=== PATIENT | female | born 1940 | race Caucasian/White ===

== ENCOUNTER 2021-11-02 19:45 | Inpatient (IN) ==
[2021-11-02 20:33] LABS: ABS Lymphocytes 0.3 10^3/ul (1.0-4.8); ABS Monocytes 0.2 10^3/ul (0-0.8); ABS Neutrophils 3.8 10^3/ul (1.5-7.7); Hematocrit 32 % (35-47); Hemoglobin 10.9 g/dL (12.0-16.0); Lymphocyte % 7.5 %; Mean Corpuscular HGB Conc 35 g/dL (31-36); Mean Corpuscular Hemoglobin 31 pg (27-31); Mean Corpuscular Volume 91 fL (80-97); Mean Platelet Volume 9.9 fL (7.4-10.4); Platelet Count 152 10^3/uL (150-450); Red Blood Count 3.49 10^6 /uL (3.70-4.87); Red Cell Distribution Width 13 % (10-15); White Blood Count 4.3 10^3/uL (3.5-10.8)
[2021-11-02 21:04] LABS: LDH 266 U/L (140-271)
[2021-11-02 21:24] LABS: Ferritin 420.1 ng/mL (11-307)
[2021-11-02 21:36] LABS: CRP High Sensitivity > 80.00 mg/L (<2.00)
[2021-11-02 21:42] LABS: ALT 12 U/L (7-52); AST 23 U/L (13-39); Albumin 3.1 g/dL (3.2-5.2); Albumin/Globulin Ratio 0.8 (1-3); Alkaline Phosphatase 50 U/L (35-149); Anion Gap 11 mmol/L (2-11); Blood Urea Nitrogen 70 mg/dL (6-24); CO2 Carbon Dioxide 23 mmol/L (22-32); Calcium 8.7 mg/dL (8.6-10.3); Chloride 94 mmol/L (101-111); Globulin 3.8 g/dL (2-4); Glucose 218 mg/dL (70-100); Potassium 3.7 mmol/L (3.5-5.0); Sodium 128 mmol/L (135-145); Total Protein 6.9 g/dL (6.4-8.9); eGFR CKD-EPI 13.1 (>60)
[2021-11-02 21:46] LABS: Troponin I 0.06 ng/mL (<0.03)
[2021-11-02] MEDS ORDERED: Albuterol HFA INHALER 8 gm MDI INH PRN (22:42)
[2021-11-03] MEDS: DOXYcycline 100 MG in NS 0.9% 250 ml 250 ML IVPB SCH ×3 (00:32→21:17)
[2021-11-03 01:45] LABS: Urine Appearance Clear; Urine Color Yellow
[2021-11-03 01:46] LABS: Urine Bilirubin Negative (Negative); Urine Blood Negative (Negative); Urine Glucose Negative (Negative); Urine Ketones Negative (Negative); Urine Nitrite Negative (Negative); Urine Protein 2+(100 mg/dL) (Negative); Urine Urobilinogen Negative (Negative)
[2021-11-03 01:47] LABS: Troponin I 0.05 ng/mL (<0.03)
[2021-11-03 01:55] LABS: Urine Bacteria 1+ (Absent); Urine Red Blood Cell Absent (Absent); Urine Squamous Epithelial Cell Present (Absent); Urine White Blood Cell 1+(6-10/hpf) (Absent)
[2021-11-03 04:21] LABS: Urine Creatinine Concentration 61.14 mg/dL
[2021-11-03 06:04] LABS: ABS Lymphocytes 0.4 10^3/ul (1.0-4.8); ABS Monocytes 0.2 10^3/ul (0-0.8); ABS Neutrophils 2.5 10^3/ul (1.5-7.7); Hematocrit 31 % (35-47); Hemoglobin 10.6 g/dL (12.0-16.0); Lymphocyte % 12.5 %; Mean Corpuscular HGB Conc 35 g/dL (31-36); Mean Corpuscular Hemoglobin 31 pg (27-31); Mean Corpuscular Volume 90 fL (80-97); Mean Platelet Volume 9.8 fL (7.4-10.4); Nucleated Red Blood Cells % 0.1; Platelet Count 147 10^3/uL (150-450); Red Blood Count 3.39 10^6 /uL (3.70-4.87); Red Cell Distribution Width 13 % (10-15); White Blood Count 3.1 10^3/uL (3.5-10.8)
[2021-11-03 06:12] LABS: INR 1.47 (0.86-1.15)
[2021-11-03 08:20] LABS: Troponin I 0.04 ng/mL (<0.03)
[2021-11-03] MEDS ORDERED: CMCS: Nebivolol 2.5 mg TAB (NF) PO SCH (09:00)
[2021-11-03] MEDS ORDERED: Nebivolol 5 mg TAB (NF) PO SCH (09:46)
[2021-11-03] MEDS: CMCS: Nebivolol 2.5 mg TAB (NF) PO SCH (10:11)
[2021-11-03 12:23] LABS: Calcium 9.1 mg/dL (8.6-10.3); Potassium 3.6 mmol/L (3.5-5.0); eGFR CKD-EPI 16.2 (>60)
[2021-11-03 12:33] LABS: C Reactive Protein 114.03 mg/L (<8.01)
[2021-11-03] MEDS ORDERED: Magnesium Hydroxide LIQ 30 ML UDC PO PRN (12:38)
[2021-11-03] MEDS ORDERED: Senna TAB 8.6 mg TAB PO PRN (12:38)
[2021-11-03] MEDS ORDERED: Furosemide 40 mg/4 ml IV VIAL IV ONE (15:17)
[2021-11-03] MEDS: Polyethylene Glycol 3350 17 GM PACKET PO PRN (21:27)
[2021-11-04] MEDS ORDERED: Furosemide 20 mg/2 ml IV VIAL IV ONE (03:36)
[2021-11-04 05:07] LABS: C Reactive Protein 72.07 mg/L (<8.01)
[2021-11-04 05:10] LABS: Hematocrit 31 % (35-47); Hemoglobin 10.6 g/dL (12.0-16.0); Mean Corpuscular HGB Conc 34 g/dL (31-36); Mean Corpuscular Hemoglobin 31 pg (27-31); Mean Corpuscular Volume 91 fL (80-97); Mean Platelet Volume 10.5 fL (7.4-10.4); Platelet Count 165 10^3/uL (150-450); Red Blood Count 3.43 10^6 /uL (3.70-4.87); Red Cell Distribution Width 13 % (10-15); White Blood Count 6.8 10^3/uL (3.5-10.8)
[2021-11-04 06:05] LABS: Albumin 2.9 g/dL (3.2-5.2); Potassium 3.6 mmol/L (3.5-5.0); Total Bilirubin 0.3 mg/dL (0.2-1.0)
[2021-11-04 06:11] LABS: Albumin/Globulin Ratio 0.8 (1-3); Globulin 3.7 g/dL (2-4); Total Protein 6.6 g/dL (6.4-8.9); eGFR CKD-EPI 19.7 (>60)
[2021-11-04 08:23] LABS: PCO2 Arterial 29 mmHg (35-45); PO2 Arterial 62 mmHg (80-100)
[2021-11-04] MEDS: DOXYcycline 100 MG in NS 0.9% 250 ml 250 ML IVPB SCH ×2 (09:27→22:06)
[2021-11-04] MEDS: Dexamethasone IV 4 MG/ML VIAL 1 ml VIAL IV SLOW PU SCH (09:28)
[2021-11-04] MEDS: CMCS: Nebivolol 2.5 mg TAB (NF) PO SCH (10:43)
[2021-11-05 04:24] LABS: ABS Lymphocytes 0.6 10^3/ul (1.0-4.8); ABS Monocytes 0.6 10^3/ul (0-0.8); ABS Neutrophils 6.6 10^3/ul (1.5-7.7); Hematocrit 34 % (35-47); Hemoglobin 11.4 g/dL (12.0-16.0); Lymphocyte % 7.2 %; Mean Corpuscular HGB Conc 33 g/dL (31-36); Mean Corpuscular Hemoglobin 31 pg (27-31); Mean Corpuscular Volume 92 fL (80-97); Mean Platelet Volume 9.9 fL (7.4-10.4); Platelet Count 192 10^3/uL (150-450); Red Blood Count 3.71 10^6 /uL (3.70-4.87); Red Cell Distribution Width 14 % (10-15); White Blood Count 7.7 10^3/uL (3.5-10.8)
[2021-11-05 04:39] LABS: Calcium 9.2 mg/dL (8.6-10.3); Magnesium 1.6 mg/dL (1.9-2.7); Phosphorus 3.3 mg/dL (2.5-5.0); Potassium 3.5 mmol/L (3.5-5.0); eGFR CKD-EPI 20.3 (>60)
[2021-11-05] MEDS ORDERED: Potassium Chlor 20 meq TAB.ER PO ONE (05:06)
[2021-11-05] MEDS ORDERED: Magnesium Sulf 4 GM/100 ML IV 4,000 MG/100 ML BAG IVPB ONE (05:06)
[2021-11-05] MEDS ORDERED: Furosemide 40 mg/4 ml IV VIAL IV SLOW PU ONE (06:15)
[2021-11-05] MEDS: CMCS: Nebivolol 2.5 mg TAB (NF) PO SCH (09:01)
[2021-11-05] MEDS: SELENIUM 200 MCG PO SCH (09:02)
[2021-11-05] MEDS: Dexamethasone IV 4 MG/ML VIAL 1 ml VIAL IV SLOW PU SCH (09:02)
[2021-11-05] MEDS: Acetylcysteine 600mgCAP(RENAL) PO SCH (21:05)
[2021-11-06] MEDS: guaiFENesin 100 mg/5 ml LIQ unit dose cup PO PRN (02:57)
[2021-11-06 05:46] LABS: ABS Lymphocytes 0.7 10^3/ul (1.0-4.8); ABS Monocytes 0.4 10^3/ul (0-0.8); ABS Neutrophils 5.6 10^3/ul (1.5-7.7); Hematocrit 31 % (35-47); Hemoglobin 10.6 g/dL (12.0-16.0); Lymphocyte % 10.9 %; Mean Corpuscular HGB Conc 34 g/dL (31-36); Mean Corpuscular Hemoglobin 31 pg (27-31); Mean Corpuscular Volume 91 fL (80-97); Mean Platelet Volume 9.4 fL (7.4-10.4); Platelet Count 171 10^3/uL (150-450); Red Blood Count 3.41 10^6 /uL (3.70-4.87); Red Cell Distribution Width 13 % (10-15); White Blood Count 6.8 10^3/uL (3.5-10.8)
[2021-11-06 06:04] LABS: Calcium 8.7 mg/dL (8.6-10.3); Magnesium 2.4 mg/dL (1.9-2.7); Phosphorus 2.7 mg/dL (2.5-5.0); Potassium 3.5 mmol/L (3.5-5.0); eGFR CKD-EPI 20.9 (>60)
[2021-11-06] MEDS ORDERED: Potassium Chlor 20 meq TAB.ER PO ONE (06:22)
[2021-11-06] MEDS: Acetylcysteine 600mgCAP(RENAL) PO SCH ×2 (09:00→20:28)
[2021-11-06] MEDS: SELENIUM 200 MCG PO SCH (09:00)
[2021-11-06] MEDS: Dexamethasone IV 4 MG/ML VIAL 1 ml VIAL IV SLOW PU SCH (09:00)
[2021-11-06] MEDS: CMCS: Nebivolol 2.5 mg TAB (NF) PO SCH (10:07)
[2021-11-07 05:24] LABS: Hematocrit 31 % (35-47); Hemoglobin 10.8 g/dL (12.0-16.0); Mean Corpuscular HGB Conc 35 g/dL (31-36); Mean Corpuscular Hemoglobin 32 pg (27-31); Mean Corpuscular Volume 90 fL (80-97); Mean Platelet Volume 10.1 fL (7.4-10.4); Platelet Count 174 10^3/uL (150-450); Red Blood Count 3.41 10^6 /uL (3.70-4.87); Red Cell Distribution Width 13 % (10-15); White Blood Count 4.7 10^3/uL (3.5-10.8)
[2021-11-07 05:32] LABS: Calcium 9.2 mg/dL (8.6-10.3); Magnesium 2.4 mg/dL (1.9-2.7); Potassium 4.7 mmol/L (3.5-5.0)
[2021-11-07] MEDS: Dexamethasone IV 4 MG/ML VIAL 1 ml VIAL IV SLOW PU SCH (09:32)
[2021-11-07] MEDS: SELENIUM 200 MCG PO SCH (09:32)
[2021-11-07] MEDS: Acetylcysteine 600mgCAP(RENAL) PO SCH ×2 (09:33→21:56)
[2021-11-07] MEDS: CMCS: Nebivolol 2.5 mg TAB (NF) PO SCH (09:34)
[2021-11-08 05:16] LABS: ABS Lymphocytes 0.3 10^3/ul (1.0-4.8); ABS Monocytes 0.6 10^3/ul (0-0.8); ABS Neutrophils 6.4 10^3/ul (1.5-7.7); Hematocrit 35 % (35-47); Hemoglobin 11.7 g/dL (12.0-16.0); Lymphocyte % 4.8 %; Mean Corpuscular HGB Conc 34 g/dL (31-36); Mean Corpuscular Hemoglobin 31 pg (27-31); Mean Corpuscular Volume 91 fL (80-97); Platelet Count 242 10^3/uL (150-450); Red Blood Count 3.79 10^6 /uL (3.70-4.87); Red Cell Distribution Width 13 % (10-15); White Blood Count 7.3 10^3/uL (3.5-10.8)
[2021-11-08 05:36] LABS: Calcium 9.5 mg/dL (8.6-10.3); Magnesium 2.1 mg/dL (1.9-2.7); Phosphorus 3.3 mg/dL (2.5-5.0); eGFR CKD-EPI 19.9 (>60)
[2021-11-08] MEDS ORDERED: Furosemide 40 mg/4 ml IV VIAL IV SLOW PU ONE (08:18)
[2021-11-08] MEDS: Dexamethasone IV 4 MG/ML VIAL 1 ml VIAL IV SLOW PU SCH (09:18)
[2021-11-08] MEDS: CMCS: Nebivolol 2.5 mg TAB (NF) PO SCH (09:19)
[2021-11-08] MEDS: Acetylcysteine 600mgCAP(RENAL) PO SCH ×2 (09:20→21:17)
[2021-11-08] MEDS: SELENIUM 200 MCG PO SCH (09:21)
[2021-11-09 04:39] LABS: Hematocrit 32 % (35-47); Hemoglobin 10.8 g/dL (12.0-16.0); Mean Corpuscular HGB Conc 34 g/dL (31-36); Mean Corpuscular Hemoglobin 31 pg (27-31); Mean Corpuscular Volume 91 fL (80-97); Mean Platelet Volume 10.4 fL (7.4-10.4); Platelet Count 223 10^3/uL (150-450); Red Cell Distribution Width 13 % (10-15); White Blood Count 4.7 10^3/uL (3.5-10.8)
[2021-11-09 04:54] LABS: Calcium 9.2 mg/dL (8.6-10.3); Magnesium 1.9 mg/dL (1.9-2.7); Potassium 4.4 mmol/L (3.5-5.0); eGFR CKD-EPI 15.1 (>60)
[2021-11-09] MEDS ORDERED: Magnesium Sulfate IV 1GM/100ML 1 GM/100 ML BAG IV ONE (08:38)
[2021-11-09] MEDS: Acetylcysteine 600mgCAP(RENAL) PO SCH ×2 (09:15→22:20)
[2021-11-09] MEDS: SELENIUM 200 MCG PO SCH (09:16)
[2021-11-09] MEDS: CMCS: Nebivolol 2.5 mg TAB (NF) PO SCH (09:17)
[2021-11-09] MEDS: Dexamethasone IV 4 MG/ML VIAL 1 ml VIAL IV SLOW PU SCH (09:18)
[2021-11-09] MEDS: guaiFENesin 100 mg/5 ml LIQ unit dose cup PO PRN (22:14)
[2021-11-10 05:10] LABS: ABS Lymphocytes 0.4 10^3/ul (1.0-4.8); ABS Monocytes 0.5 10^3/ul (0-0.8); ABS Neutrophils 4.2 10^3/ul (1.5-7.7); Hematocrit 34 % (35-47); Hemoglobin 11.5 g/dL (12.0-16.0); Lymphocyte % 7.8 %; Mean Corpuscular HGB Conc 34 g/dL (31-36); Mean Corpuscular Hemoglobin 31 pg (27-31); Mean Corpuscular Volume 90 fL (80-97); Mean Platelet Volume 9.6 fL (7.4-10.4); Platelet Count 248 10^3/uL (150-450); Red Blood Count 3.71 10^6 /uL (3.70-4.87); Red Cell Distribution Width 13 % (10-15); White Blood Count 5.1 10^3/uL (3.5-10.8)
[2021-11-10 05:31] LABS: Calcium 9.7 mg/dL (8.6-10.3); Magnesium 2.2 mg/dL (1.9-2.7); Potassium 4.2 mmol/L (3.5-5.0); eGFR CKD-EPI 17.9 (>60)
[2021-11-10] MEDS ORDERED: Furosemide 40 mg/4 ml IV VIAL IV SLOW PU ONE (07:41)
[2021-11-10] MEDS: CMCS: Nebivolol 2.5 mg TAB (NF) PO SCH (10:17)
[2021-11-10] MEDS: Acetylcysteine 600mgCAP(RENAL) PO SCH ×2 (10:17→20:13)
[2021-11-10] MEDS: SELENIUM 200 MCG PO SCH (10:17)
[2021-11-10] MEDS: Dexamethasone IV 4 MG/ML VIAL 1 ml VIAL IV SLOW PU SCH (10:18)
[2021-11-10] MEDS: guaiFENesin 100 mg/5 ml LIQ unit dose cup PO PRN ×2 (10:23→20:12)
[2021-11-11 04:57] LABS: ABS Lymphocytes 0.3 10^3/ul (1.0-4.8); ABS Monocytes 0.5 10^3/ul (0-0.8); ABS Neutrophils 5.9 10^3/ul (1.5-7.7); Hematocrit 38 % (35-47); Hemoglobin 12.7 g/dL (12.0-16.0); Lymphocyte % 4.2 %; Mean Corpuscular HGB Conc 34 g/dL (31-36); Mean Corpuscular Hemoglobin 31 pg (27-31); Mean Corpuscular Volume 91 fL (80-97); Mean Platelet Volume 9.6 fL (7.4-10.4); Platelet Count 285 10^3/uL (150-450); Red Blood Count 4.15 10^6 /uL (3.70-4.87); Red Cell Distribution Width 13 % (10-15); White Blood Count 6.7 10^3/uL (3.5-10.8)
[2021-11-11 05:13] LABS: Calcium 9.9 mg/dL (8.6-10.3); Potassium 4.3 mmol/L (3.5-5.0); eGFR CKD-EPI 19.1 (>60)
[2021-11-11] MEDS: guaiFENesin 100 mg/5 ml LIQ unit dose cup PO PRN (05:37)
[2021-11-11] MEDS: Dexamethasone IV 4 MG/ML VIAL 1 ml VIAL IV SLOW PU SCH (08:42)
[2021-11-11] MEDS: Acetylcysteine 600mgCAP(RENAL) PO SCH ×2 (08:42→20:23)
[2021-11-11] MEDS: SELENIUM 200 MCG PO SCH (08:43)
[2021-11-11] MEDS: CMCS: Nebivolol 2.5 mg TAB (NF) PO SCH (11:21)
[2021-11-12 06:13] LABS: ABS Lymphocytes 0.3 10^3/ul (1.0-4.8); ABS Monocytes 0.5 10^3/ul (0-0.8); ABS Neutrophils 5.4 10^3/ul (1.5-7.7); Eosinophil % 0.1 %; Hematocrit 34 % (35-47); Hemoglobin 11.7 g/dL (12.0-16.0); Lymphocyte % 5.3 %; Mean Corpuscular HGB Conc 34 g/dL (31-36); Mean Corpuscular Hemoglobin 31 pg (27-31); Mean Corpuscular Volume 90 fL (80-97); Mean Platelet Volume 9.6 fL (7.4-10.4); Nucleated Red Blood Cells % 0.1; Platelet Count 257 10^3/uL (150-450); Red Cell Distribution Width 13 % (10-15); White Blood Count 6.3 10^3/uL (3.5-10.8)
[2021-11-12 06:30] LABS: Potassium 4.3 mmol/L (3.5-5.0); eGFR CKD-EPI 19.3 (>60)
[2021-11-12] MEDS: Dexamethasone IV 4 MG/ML VIAL 1 ml VIAL IV SLOW PU SCH (10:45)
[2021-11-12] MEDS: SELENIUM 200 MCG PO SCH (10:45)
[2021-11-12] MEDS: Acetylcysteine 600mgCAP(RENAL) PO SCH ×2 (10:45→21:41)
[2021-11-12] MEDS: CMCS: Nebivolol 2.5 mg TAB (NF) PO SCH (10:46)
[2021-11-13 05:27] LABS: ABS Lymphocytes 0.3 10^3/ul (1.0-4.8); ABS Monocytes 0.4 10^3/ul (0-0.8); ABS Neutrophils 4.9 10^3/ul (1.5-7.7); Hematocrit 33 % (35-47); Lymphocyte % 5.6 %; Mean Corpuscular HGB Conc 33 g/dL (31-36); Mean Corpuscular Hemoglobin 31 pg (27-31); Mean Corpuscular Volume 92 fL (80-97); Mean Platelet Volume 9.7 fL (7.4-10.4); Platelet Count 239 10^3/uL (150-450); Red Cell Distribution Width 14 % (10-15); White Blood Count 5.6 10^3/uL (3.5-10.8)
[2021-11-13 05:42] LABS: Calcium 9.6 mg/dL (8.6-10.3); Potassium 4.5 mmol/L (3.5-5.0); eGFR CKD-EPI 18.6 (>60)
[2021-11-13] MEDS: SELENIUM 200 MCG PO SCH (08:17)
[2021-11-13] MEDS: CMCS: Nebivolol 2.5 mg TAB (NF) PO SCH (08:17)
[2021-11-13] MEDS: Dexamethasone IV 4 MG/ML VIAL 1 ml VIAL IV SLOW PU SCH (08:18)
[2021-11-13] MEDS: Acetylcysteine 600mgCAP(RENAL) PO SCH ×2 (08:18→21:51)
[2021-11-13] MEDS: guaiFENesin 100 mg/5 ml LIQ unit dose cup PO PRN (18:24)
[2021-11-14 08:15] LABS: ABS Lymphocytes 0.4 10^3/ul (1.0-4.8); ABS Monocytes 0.5 10^3/ul (0-0.8); ABS Neutrophils 5.1 10^3/ul (1.5-7.7); Eosinophil % 0.1 %; Hematocrit 33 % (35-47); Hemoglobin 11.3 g/dL (12.0-16.0); Lymphocyte % 6.7 %; Mean Corpuscular HGB Conc 34 g/dL (31-36); Mean Corpuscular Hemoglobin 32 pg (27-31); Mean Corpuscular Volume 92 fL (80-97); Mean Platelet Volume 10.3 fL (7.4-10.4); Platelet Count 234 10^3/uL (150-450); Red Blood Count 3.59 10^6 /uL (3.70-4.87); Red Cell Distribution Width 14 % (10-15); White Blood Count 5.9 10^3/uL (3.5-10.8)
[2021-11-14 08:35] LABS: Calcium 9.7 mg/dL (8.6-10.3); Magnesium 2.2 mg/dL (1.9-2.7); Potassium 4.4 mmol/L (3.5-5.0); eGFR CKD-EPI 18.1 (>60)
[2021-11-14] MEDS: guaiFENesin 100 mg/5 ml LIQ unit dose cup PO PRN ×2 (09:55→20:18)
[2021-11-14] MEDS: CMCS: Nebivolol 2.5 mg TAB (NF) PO SCH (10:16)
[2021-11-14] MEDS: Acetylcysteine 600mgCAP(RENAL) PO SCH ×2 (10:16→22:05)
[2021-11-14] MEDS: SELENIUM 200 MCG PO SCH (10:16)
[2021-11-15] MEDS: CMCS: Nebivolol 2.5 mg TAB (NF) PO SCH ×2 (11:01→13:04)
[2021-11-15] MEDS: SELENIUM 200 MCG PO SCH ×2 (11:02→14:18)
[2021-11-15] MEDS: Acetylcysteine 600mgCAP(RENAL) PO SCH ×3 (11:05→20:32)
[2021-11-15 11:54] LABS: PCO2 Arterial 36 mmHg (35-45); PO2 Arterial 74 mmHg (80-100)
[2021-11-15 12:14] LABS: Hematocrit 35 % (35-47); Hemoglobin 11.5 g/dL (12.0-16.0); Mean Corpuscular HGB Conc 33 g/dL (31-36); Mean Corpuscular Hemoglobin 30 pg (27-31); Mean Corpuscular Volume 92 fL (80-97); Mean Platelet Volume 9.9 fL (7.4-10.4); Platelet Count 239 10^3/uL (150-450); Red Blood Count 3.78 10^6 /uL (3.70-4.87); Red Cell Distribution Width 14 % (10-15); White Blood Count 6.9 10^3/uL (3.5-10.8)
[2021-11-15 12:27] LABS: ALT 16 U/L (7-52); AST 16 U/L (13-39); Albumin 2.8 g/dL (3.2-5.2); Albumin/Globulin Ratio 0.8 (1-3); Alkaline Phosphatase 56 U/L (35-149); Anion Gap 10 mmol/L (2-11); Blood Urea Nitrogen 112 mg/dL (6-24); CO2 Carbon Dioxide 21 mmol/L (22-32); Calcium 9.5 mg/dL (8.6-10.3); Chloride 111 mmol/L (101-111); Globulin 3.4 g/dL (2-4); Glucose 190 mg/dL (70-100); Magnesium 2.1 mg/dL (1.9-2.7); Phosphorus 4.2 mg/dL (2.5-5.0); Potassium 4.2 mmol/L (3.5-5.0); Sodium 142 mmol/L (135-145); Total Protein 6.2 g/dL (6.4-8.9); eGFR CKD-EPI 16.6 (>60)
[2021-11-15] MEDS ORDERED: Furosemide 40 mg/4 ml IV VIAL IV SLOW PU ONE (12:27)
[2021-11-15 12:31] LABS: Troponin I 0.06 ng/mL (<0.03)
[2021-11-15 12:50] LABS: ABS Lymphocytes 0.4 10^3/ul (1.0-4.8); ABS Monocytes 0.4 10^3/ul (0-0.8); Eosinophil % 0.1 %; Lymphocyte % 6.4 %
[2021-11-15] MEDS ORDERED: hydrALAZINE 20 mg/ml 1 ML Vial IV IV SLOW PU ONE ×2 (13:04→13:15)
[2021-11-15] MEDS ORDERED: hydrALAZINE 20 mg/ml 1 ML Vial IV ONE (13:07)
[2021-11-15] MEDS ORDERED: Polyethylene Glycol 3350 17 GM PACKET PO PRN (16:38)
[2021-11-15] MEDS: Polyethylene Glycol 3350 17 GM PACKET PO PRN (16:52)
[2021-11-15] MEDS ORDERED: Senna TAB 8.6 mg TAB PO SCH (18:00)
[2021-11-15] MEDS: Polyethylene Glycol 3350 17 GM PACKET PO SCH (18:21)
[2021-11-15] MEDS ORDERED: Sodium Phosphate ADULT ENEMA 133 ML BTL PR ONE (20:00)
[2021-11-15] MEDS: Senna TAB 8.6 mg TAB PO SCH (20:35)
[2021-11-16 05:21] LABS: ABS Lymphocytes 0.3 10^3/ul (1.0-4.8); ABS Monocytes 0.5 10^3/ul (0-0.8); ABS Neutrophils 9.4 10^3/ul (1.5-7.7); Hematocrit 34 % (35-47); Hemoglobin 11.7 g/dL (12.0-16.0); Lymphocyte % 2.6 %; Mean Corpuscular HGB Conc 34 g/dL (31-36); Mean Corpuscular Hemoglobin 31 pg (27-31); Mean Corpuscular Volume 91 fL (80-97); Mean Platelet Volume 10.2 fL (7.4-10.4); Nucleated Red Blood Cells % 0.1; Platelet Count 218 10^3/uL (150-450); Red Blood Count 3.76 10^6 /uL (3.70-4.87); Red Cell Distribution Width 14 % (10-15); White Blood Count 10.1 10^3/uL (3.5-10.8)
[2021-11-16 05:36] LABS: Calcium 9.4 mg/dL (8.6-10.3); Magnesium 2.1 mg/dL (1.9-2.7); Potassium 4.5 mmol/L (3.5-5.0); eGFR CKD-EPI 17.6 (>60)
[2021-11-16] MEDS: Polyethylene Glycol 3350 17 GM PACKET PO SCH (08:58)
[2021-11-16] MEDS: Acetylcysteine 600mgCAP(RENAL) PO SCH ×2 (08:59→21:33)
[2021-11-16] MEDS: SELENIUM 200 MCG PO SCH (09:05)
[2021-11-16] MEDS ORDERED: Labetalol IV 5 MG/ML 20 ml VIAL IV PUSH ONE (15:34)
[2021-11-16] MEDS ORDERED: Ondansetron 4 mg VIAL 2 MG/ML 2 ml VIAL ONE (16:35)
[2021-11-16] MEDS ORDERED: Mineral Oil ENEMA 118 ML/BOTTLE BOTTLE PR ONE (17:29)
[2021-11-16] MEDS ORDERED: Ondansetron 4 mg VIAL 2 MG/ML 2 ml VIAL IV PRN (17:48)
[2021-11-16] MEDS: Magnesium Hydroxide LIQ 30 ML UDC PO SCH (21:32)
[2021-11-16] MEDS: Senna TAB 8.6 mg TAB PO SCH (21:33)
[2021-11-17 05:13] LABS: Calcium 9.5 mg/dL (8.6-10.3); Magnesium 2.5 mg/dL (1.9-2.7); Phosphorus 6.6 mg/dL (2.5-5.0); Potassium 4.3 mmol/L (3.5-5.0); eGFR CKD-EPI 14.3 (>60)
[2021-11-17] MEDS ORDERED: D5W 500 ml BAG 500 ML IV SCH (08:00)
[2021-11-17] MEDS: Polyethylene Glycol 3350 17 GM PACKET PO SCH (08:34)
[2021-11-17] MEDS: Acetylcysteine 600mgCAP(RENAL) PO SCH (08:35)
[2021-11-17] MEDS: SELENIUM 200 MCG PO SCH (08:35)
[2021-11-17] MEDS: Magnesium Hydroxide LIQ 30 ML UDC PO SCH ×2 (08:35→23:41)
[2021-11-17] MEDS: Senna TAB 8.6 mg TAB PO SCH (23:41)
[2021-11-18 07:02] LABS: ABS Lymphocytes 0.5 10^3/ul (1.0-4.8); ABS Monocytes 0.8 10^3/ul (0-0.8); ABS Neutrophils 6.5 10^3/ul (1.5-7.7); Eosinophil % 0.1 %; Hematocrit 30 % (35-47); Hemoglobin 10.1 g/dL (12.0-16.0); Lymphocyte % 6.1 %; Mean Corpuscular HGB Conc 34 g/dL (31-36); Mean Corpuscular Hemoglobin 31 pg (27-31); Mean Corpuscular Volume 92 fL (80-97); Mean Platelet Volume 10.6 fL (7.4-10.4); Nucleated Red Blood Cells % 0.1; Platelet Count 165 10^3/uL (150-450); Red Blood Count 3.22 10^6 /uL (3.70-4.87); Red Cell Distribution Width 14 % (10-15); White Blood Count 7.8 10^3/uL (3.5-10.8)
[2021-11-18 07:41] LABS: Calcium 9.2 mg/dL (8.6-10.3); Magnesium 2.6 mg/dL (1.9-2.7); Potassium 4.6 mmol/L (3.5-5.0); eGFR CKD-EPI 12.3 (>60)
[2021-11-18] MEDS: Magnesium Hydroxide LIQ 30 ML UDC PO SCH ×2 (09:11→23:52)
[2021-11-18] MEDS: Polyethylene Glycol 3350 17 GM PACKET PO SCH (09:11)
[2021-11-18] MEDS: Senna TAB 8.6 mg TAB PO SCH (23:54)
[2021-11-19 06:44] LABS: Hematocrit 30 % (35-47); Hemoglobin 9.9 g/dL (12.0-16.0); Mean Corpuscular HGB Conc 34 g/dL (31-36); Mean Corpuscular Hemoglobin 31 pg (27-31); Mean Corpuscular Volume 92 fL (80-97); Mean Platelet Volume 10.9 fL (7.4-10.4); Platelet Count 165 10^3/uL (150-450); Red Blood Count 3.21 10^6 /uL (3.70-4.87); Red Cell Distribution Width 14 % (10-15); White Blood Count 7.7 10^3/uL (3.5-10.8)
[2021-11-19 07:00] LABS: Calcium 9.1 mg/dL (8.6-10.3); Magnesium 3.3 mg/dL (1.9-2.7); Potassium 4.3 mmol/L (3.5-5.0); eGFR CKD-EPI 12.2 (>60)
[2021-11-19] MEDS: Polyethylene Glycol 3350 17 GM PACKET PO SCH (09:46)
[2021-11-19] MEDS: Senna TAB 8.6 mg TAB PO SCH (20:42)
[2021-11-20 06:57] LABS: Potassium 4.7 mmol/L (3.5-5.0); eGFR CKD-EPI 12.2 (>60)
[2021-11-20 07:00] LABS: Hematocrit 28 % (35-47); Hemoglobin 9.6 g/dL (12.0-16.0); Mean Corpuscular HGB Conc 34 g/dL (31-36); Mean Corpuscular Hemoglobin 31 pg (27-31); Mean Corpuscular Volume 92 fL (80-97); Mean Platelet Volume 10.8 fL (7.4-10.4); Platelet Count 144 10^3/uL (150-450); Red Blood Count 3.08 10^6 /uL (3.70-4.87); Red Cell Distribution Width 14 % (10-15); White Blood Count 6.6 10^3/uL (3.5-10.8)
[2021-11-20] MEDS: Polyethylene Glycol 3350 17 GM PACKET PO SCH (07:53)
[2021-11-20] MEDS ORDERED: Furosemide 40 mg/4 ml IV VIAL IV ONE (17:39)
[2021-11-20] MEDS: Senna TAB 8.6 mg TAB PO SCH (20:47)
[2021-11-21 06:43] LABS: Hematocrit 28 % (35-47); Hemoglobin 9.4 g/dL (12.0-16.0); Mean Corpuscular HGB Conc 34 g/dL (31-36); Mean Corpuscular Hemoglobin 31 pg (27-31); Mean Corpuscular Volume 92 fL (80-97); Mean Platelet Volume 10.9 fL (7.4-10.4); Platelet Count 143 10^3/uL (150-450); Red Blood Count 3.05 10^6 /uL (3.70-4.87); Red Cell Distribution Width 14 % (10-15); White Blood Count 6.4 10^3/uL (3.5-10.8)
[2021-11-21 06:54] LABS: Calcium 8.8 mg/dL (8.6-10.3); Potassium 4.8 mmol/L (3.5-5.0)
[2021-11-21] MEDS: Polyethylene Glycol 3350 17 GM PACKET PO SCH (07:46)
[2021-11-21] MEDS: Senna TAB 8.6 mg TAB PO SCH (20:27)
[2021-11-22 06:37] LABS: Magnesium 3.1 mg/dL (1.9-2.7); Potassium 4.9 mmol/L (3.5-5.0); eGFR CKD-EPI 11.2 (>60)
[2021-11-22] MEDS: Polyethylene Glycol 3350 17 GM PACKET PO SCH (08:35)
[2021-11-22] MEDS ORDERED: Furosemide 40 mg/4 ml IV VIAL IV ONE (09:49)
[2021-11-22] MEDS ORDERED: NS 0.9% 1000 ml BAG 1,000 ML IV SCH (16:30)
[2021-11-22] MEDS: Senna TAB 8.6 mg TAB PO SCH (21:17)
[2021-11-23 05:34] LABS: Calcium 8.9 mg/dL (8.6-10.3); Magnesium 2.9 mg/dL (1.9-2.7); Potassium 4.4 mmol/L (3.5-5.0); eGFR CKD-EPI 11.8 (>60)
[2021-11-23] MEDS: Polyethylene Glycol 3350 17 GM PACKET PO SCH (08:28)
[2021-11-23] MEDS: Senna TAB 8.6 mg TAB PO SCH (20:52)
[2021-11-24 06:26] LABS: ABS Lymphocytes 0.5 10^3/ul (1.0-4.8); ABS Neutrophils 4.2 10^3/ul (1.5-7.7); Eosinophil % 0.1 %; Hematocrit 29 % (35-47); Hemoglobin 9.4 g/dL (12.0-16.0); Lymphocyte % 9.3 %; Mean Corpuscular HGB Conc 33 g/dL (31-36); Mean Corpuscular Hemoglobin 30 pg (27-31); Mean Corpuscular Volume 93 fL (80-97); Mean Platelet Volume 10.1 fL (7.4-10.4); Nucleated Red Blood Cells % 0.1; Platelet Count 139 10^3/uL (150-450); Red Cell Distribution Width 14 % (10-15); White Blood Count 5.7 10^3/uL (3.5-10.8)
[2021-11-24 06:41] LABS: Calcium 9.2 mg/dL (8.6-10.3); Magnesium 2.7 mg/dL (1.9-2.7); Potassium 4.3 mmol/L (3.5-5.0); eGFR CKD-EPI 12.8 (>60)
[2021-11-24] MEDS: Polyethylene Glycol 3350 17 GM PACKET PO SCH (08:38)
[2021-11-24] MEDS ORDERED: Saline NASAL SPRAY 0.65% BTL BOTH NARES PRN (09:59)
[2021-11-24] MEDS: Senna TAB 8.6 mg TAB PO SCH (20:46)
[2021-11-24 22:29] LABS: Hematocrit 30 % (35-47); Hemoglobin 9.8 g/dL (12.0-16.0)
[2021-11-25 05:57] LABS: Calcium 9.1 mg/dL (8.6-10.3); Magnesium 2.5 mg/dL (1.9-2.7); Potassium 4.6 mmol/L (3.5-5.0); eGFR CKD-EPI 12.3 (>60)
[2021-11-25 06:28] LABS: TSH Ultra Thyroid Stim Horm 2.29 mcIU/mL (0.34-5.60)
[2021-11-25 07:24] LABS: ABS Lymphocytes 0.4 10^3/ul (1.0-4.8); ABS Monocytes 0.8 10^3/ul (0-0.8); ABS Neutrophils 3.1 10^3/ul (1.5-7.7); Eosinophil % 0.1 %; Hematocrit 26 % (35-47); Hemoglobin 8.5 g/dL (12.0-16.0); Lymphocyte % 10.2 %; Mean Corpuscular HGB Conc 33 g/dL (31-36); Mean Corpuscular Hemoglobin 31 pg (27-31); Mean Corpuscular Volume 93 fL (80-97); Mean Platelet Volume 10.5 fL (7.4-10.4); Nucleated Red Blood Cells % 0.1; Platelet Count 129 10^3/uL (150-450); Red Blood Count 2.75 10^6 /uL (3.70-4.87); Red Cell Distribution Width 14 % (10-15); White Blood Count 4.4 10^3/uL (3.5-10.8)
[2021-11-25] MEDS: Senna TAB 8.6 mg TAB PO SCH (22:08)
[2021-11-26 06:51] LABS: ABS Lymphocytes 0.4 10^3/ul (1.0-4.8); ABS Monocytes 0.8 10^3/ul (0-0.8); ABS Neutrophils 3.6 10^3/ul (1.5-7.7); Eosinophil % 0.1 %; Hematocrit 27 % (35-47); Hemoglobin 9.2 g/dL (12.0-16.0); Lymphocyte % 8.9 %; Mean Corpuscular HGB Conc 34 g/dL (31-36); Mean Corpuscular Hemoglobin 31 pg (27-31); Mean Corpuscular Volume 93 fL (80-97); Mean Platelet Volume 10.2 fL (7.4-10.4); Platelet Count 132 10^3/uL (150-450); Red Blood Count 2.91 10^6 /uL (3.70-4.87); Red Cell Distribution Width 14 % (10-15); White Blood Count 4.9 10^3/uL (3.5-10.8)
[2021-11-26 07:03] LABS: Calcium 9.1 mg/dL (8.6-10.3); Magnesium 2.3 mg/dL (1.9-2.7); Potassium 4.4 mmol/L (3.5-5.0); eGFR CKD-EPI 13.1 (>60)
[2021-11-26 11:53] VITALS: BP 146/52
== END 2021-11-26 14:10 | disposition swing bed (61) | DRG 177 ==
LOC: ED 19:45 → SUATTDRO 22:18 → MED 11-03 05:49 → ICU 11-04 08:41 → MED 11-13 10:35 → ICU 11-15 12:23 → MEDTELE 11-17 14:31
PROVIDERS: ADMIT Hospitalist; ATTEND Student in an Organized Health Care Education/Training Program